=== PATIENT | female | born 1995 | race Caucasian/White ===

== ENCOUNTER 2024-08-02 15:08 | Emergency (ER) | payer OTHER ==
[~2024-08-02] VITALS: Ht 160 cm; Wt 67.9 kg
[2024-08-02] MEDS ORDERED: PNV1TABL16 PO (15:18)
[2024-08-02 16:58] LABS: KETONE, URINE AUTO RFX NEGATIVE (NEGATIVE); LEUKOCYTE ESTERASE UR AUTO RFX NEGATIVE (NEGATIVE); NITRITE, URINE AUTO RFX NEGATIVE (NEGATIVE); RBC, URINE AUTO RFX 0 /HPF (0-3); SQUAM EPITHELIAL CELL UR AURFX 0 /HPF (0-6); WBC, URINE AUTO RFX 0 /HPF (0-3)
[2024-08-02 17:09] LABS: BASO % 0.3 % (0.0-1.0); EOS % 0.3 % (0.0-3.0); HEMATOCRIT 36.8 % (36.0-47.0); HEMOGLOBIN 12.2 g/dl (12.0-15.5); LYMPH # 1.2 10^3/uL (1.5-5.0); LYMPH % 15.9 % (24.0-44.0); MEAN CORPUSCULAR HEMOGLOBIN 31.8 pg (27.0-33.0); MEAN CORPUSCULAR HGB CONC 33.2 g/dl (32.0-36.5); MEAN CORPUSCULAR VOLUME 95.8 fl (80.0-96.0); MONO # 0.6 10^3/uL (0.0-0.8); MONO % 7.4 % (2.0-8.0); NEUTROPHILS # 5.8 10^3/uL (1.5-8.5); NEUTROPHILS % 75.6 % (36.0-66.0); PLATELET COUNT, AUTOMATED 222 10^3/uL (150-450); RED BLOOD COUNT 3.84 10^6/uL (4.00-5.40); WHITE BLOOD COUNT 7.6 10^3/uL (4.0-10.0)
[2024-08-02 17:24] LABS: BLOOD UREA NITROGEN 9 MG/DL (9-23); CALCIUM LEVEL 9.4 MG/DL (8.5-10.1); CARBON DIOXIDE LEVEL 25 MMOL/L (20-31); CHLORIDE LEVEL 103 MMOL/L (98-107); CREATININE FOR GFR 0.48 MG/DL (0.55-1.30); GLOMERULAR FILTRATION RATE > 90.0 (>60); GLUCOSE, FASTING 84 MG/DL (60-100); MAGNESIUM LEVEL 1.9 MG/DL (1.8-2.4); POTASSIUM SERUM 3.9 MMOL/L (3.5-5.1); SODIUM LEVEL 139 MMOL/L (136-145)
[2024-08-02 17:26] LABS: THYROID STIMULATING HORMONE 0.471 uIU/ML (0.55-4.78)
[2024-08-02 19:20] LABS: HCG, SERUM QUANTITATIVE 35375.7 MIU/ML (<4.2)
[2024-08-02 22:08] VITALS: BP 120/63; TEMP 98.3; O2SAT 99
== END 2024-08-02 22:13 | disposition home or self-care (01) ==
LOC: M ED 15:08
DX: R53.1 Weakness (principal); G40.909 Epilepsy, unspecified, not intractable, without status epilepticus; Z91.018 Allergy to other foods; Z79.810 Long term (current) use of selective estrogen receptor modulators (SERMs)

== ENCOUNTER → 2024-11-27 | Outpatient (REF) | payer OTHER ==
[~2024-11-27] MED LIST: PNV1TABL16 PO
== END ==
LOC: M SFHCWAGY 10:35
PROVIDERS: ATTEND Student in an Organized Health Care Education/Training Program
DX: Z34.03 Encounter for supervision of normal first pregnancy, third trimester (principal)

== ENCOUNTER 2024-12-22 16:16 | Inpatient (IN) | payer OTHER ==
[2024-12-22] VITALS (8 sets, daily range): BP systolic 113–154; BP diastolic 58–96
[~2024-12-22] VITALS: Ht 160 cm; Wt 86.4 kg
[2024-12-22] MEDS ORDERED: HOME MED LIST COMPLETE! XX SCH (16:50)
[2024-12-22] MEDS ORDERED: OXYTOCIN DRIP 30 UNITS in IV 1 EA IV PRN (16:55)
[2024-12-22] MEDS ORDERED: LIDOCAINE 1% MDV 20 ML VIAL INFIL PRN (16:55)
[2024-12-22 17:18] LABS: PLATELET COUNT, AUTOMATED 206 10^3/uL (150-450)
[2024-12-22] MEDS: miSOPROStol 50 MCG 1/2 TABLET SL SCH (17:18)
[2024-12-22 18:23] LABS: HIV 1&2 SCREEN NEGATIVE (NEGATIVE)
[2024-12-22 18:31] LABS: HEPATITIS C VIRUS ABY INDEX < 0.02 INDEX (<0.8)
[2024-12-23] VITALS (46 sets, daily range): BP systolic 100–153; BP diastolic 55–96
[2024-12-23] MEDS: AMPICILLIN SOD 2 GM in DEXTROSE 5% (D5W) MINI-BAG PLU 100 ML IV STA (08:34)
[2024-12-23] MEDS: LR 1,000 ML IV SCH (08:36)
[2024-12-23] MEDS ORDERED: PRENTAB9 PO (09:19)
[2024-12-23] MEDS ORDERED: FENTANYL 2 MCG/ML ROPIVACAINE 0.2% IN 0.9% NACL 100 ML IVBAG As Ordered ONE (09:30)
[2024-12-23] MEDS ORDERED: LR 500 ML IV PRN (09:30)
[2024-12-23] MEDS ORDERED: diphenhydrAMINE 50 MG/ML VIAL IV PRN (09:30)
[2024-12-23] MEDS ORDERED: NALOXONE INJ 0.4 MG/1 ML VIAL IV PRN (09:30)
[2024-12-23] MEDS ORDERED: EPIDURAL/PCA KEYS XX PRN (09:30)
[2024-12-23] MEDS: FENTANYL/ROPIVACAINE/NACL BAG 100 ML EPIDURAL SCH (09:55)
[2024-12-23] MEDS: OXYTOCIN DRIP 30 UNITS in IV 1 EA IV SCH (10:57)
[2024-12-23] MEDS: AMPICILLIN SOD 1 GM in DEXTROSE 5% (D5W) ADV/MINI-BAG 50 ML IV SCH (12:34)
[2024-12-23] MEDS: ONDANSETRON 4MG 2ML VIAL IV PRN (19:58)
[2024-12-23] MEDS: ACETAMINOPHEN 500 MG TAB PO ONE (21:03)
[2024-12-23] MEDS ORDERED: TRANEXAMIC ACID 100 MG/ML 10ML VIAL As Ordered ONE (22:26)
[2024-12-23] MEDS: AMPICILLIN SOD/SULBACTAM SOD 3 GM in DEXTROSE 5% (D5W) MINI-BAG PLU 100 ML IV ONE (22:34)
[2024-12-23] MEDS: TRANEXAMIC ACID INJection 1,000 MG in D5W 100 ML IV ONE (22:35)
[2024-12-23] MEDS ORDERED: MOM 30 ML SUSPENSION UDC PO PRN (23:45)
[2024-12-23] MEDS ORDERED: METHYLERGONOVINE MALEATE 0.2 MG/ML 1 ML VIAL IM PRN (23:45)
[2024-12-23] MEDS ORDERED: DOCUSATE SODIUM 100 MG CAPSULE PO PRN (23:45)
[2024-12-23] MEDS ORDERED: ACETAMINOPHEN 325 MG TAB PO PRN (23:45)
[2024-12-23] MEDS ORDERED: IBUPROFEN 800 MG TAB PO PRN (23:45)
[2024-12-23] MEDS ORDERED: RHOGAM 300MCG (1500IU) INJ IM SCH (23:45)
[2024-12-24 00:13] VITALS: BP 118/67
[2024-12-24 02:48] VITALS: BP 137/63; O2SAT 91
[2024-12-24] MEDS: DIBUCAINE 1% OINTMENT 30 GM TOP PRN (05:31)
[2024-12-24] MEDS: ACETAMINOPHEN 500 MG TAB PO PRN (05:51)
[2024-12-24 06:03] VITALS: BP 135/83; O2SAT 95
[2024-12-24 07:40] VITALS: BP 135/83; TEMP 97.3; O2SAT 95
[2024-12-24] MEDS: PRENATAL VITAMINS CHEWABLE TABLET PO SCH (07:41)
[2024-12-24 10:10] LABS: PLATELET COUNT, AUTOMATED 189 10^3/uL (150-450)
[2024-12-24] MEDS: ANUSOL HC CREAM 30 GM TOP PRN (13:44)
[2024-12-25 07:01] VITALS: BP 117/62; O2SAT 99
[2024-12-25] MEDS: IBUPROFEN 600 MG TAB PO PRN (08:23)
[2024-12-25] MEDS ORDERED: MEASLES,MUMPS,RUBELLA VACCINE INJ (MMR-II) SC.IMMUN ONE (09:00)
[2024-12-25] MEDS: FLUZONE VACCINE TRI PF(25-26) 0.5ML SYRINGE IM.IMMUN ONE (14:03)
== END 2024-12-25 16:50 | disposition home or self-care (01) | DRG 805 ==
LOC: M LDI 16:16 → M OBS 12-24 01:24
PROVIDERS: ADMIT Specialist; ATTEND Advanced Practice Midwife
PROC: 3E0P7GC Introduction of Other Therapeutic Substance into Female Reproductive, Via Natural or Artificial Opening (ICD-10-PCS; 2024-12-22)
PROC: 10E0XZZ Delivery of Products of Conception, External Approach (ICD-10-PCS; principal; 2024-12-23)
PROC: 0KQM0ZZ Repair Perineum Muscle, Open Approach (ICD-10-PCS; 2024-12-23)
PROC: 10907ZC Drainage of Amniotic Fluid, Therapeutic from Products of Conception, Via Natural or Artificial Opening (ICD-10-PCS; 2024-12-23)
DX: O36.63X0 Maternal care for excessive fetal growth, third trimester, not applicable or unspecified (principal); Z37.0 Single live birth; O41.1230 Chorioamnionitis, third trimester, not applicable or unspecified; Z3A.39 39 weeks gestation of pregnancy; O99.824 Streptococcus B carrier state complicating childbirth; O76 Abnormality in fetal heart rate and rhythm complicating labor and delivery; O70.1 Second degree perineal laceration during delivery